=== PATIENT | female | born 1960 | race Caucasian/White ===

== ENCOUNTER 2018-02-10 13:38 | Outpatient (CLI) | payer BC | END 2018-02-10 13:39 | disposition home or self-care (01) | LOC: BICCT 13:38 | PROVIDERS: ATTEND Obstetrics & Gynecology | DX: R10.10 Upper abdominal pain, unspecified (principal); R31.9 Hematuria, unspecified; K76.89 Other specified diseases of liver | CPT/HCPCS: 74176 ==

== ENCOUNTER 2018-06-09 07:53 | Outpatient (CLI) | payer BC | END 2018-06-09 07:54 | disposition home or self-care (01) | LOC: BICMAMMO 07:53 | PROVIDERS: ATTEND Obstetrics & Gynecology | DX: Z12.31 Encounter for screening mammogram for malignant neoplasm of breast (principal); Z80.3 Family history of malignant neoplasm of breast | CPT/HCPCS: 77063; 77067 ==

== ENCOUNTER 2019-10-20 10:36 | Outpatient (CLI) | payer BC ==
--- NOTE | 2019-10-20 14:38 | MRI ---
MR the lumbar spine without contrast INDICATION: Low back pain with right-sided radiculopathy; right leg numbness and right leg pain COMPARISON: None. TECHNIQUE: Multiplanar multisequence MR images were obtained of lumbar spine without IV contrast. FINDINGS: Bone marrow: Bone marrow signal intensity appears within normal limits. Distal spinal cord and conus: Normal. The conus seen to terminate at L1. Visualized retroperitoneum and paraspinal soft tissues: No lymphadenopathy or free fluid is demonstra effie. Vertebral levels: L5-S1: There is a broad-based disc bulge with a superimposed right paracentral disc protrusion. There is moderate to severe narrowing of the right lateral recess with potential for impingement of the traversing right S1 nerve root. Broad-based bulge and facet hypertrophy at this level induces mild ne ural foraminal encroachment but without definite impingement.. L4-5: There is a broad-based bulge with facet hypertrophy and loss of disc space height is inducing m ild bilateral neural foraminal narrowing. L3-4: Broad-based disc bulge with mild facet joint degenerative change. There is mild neural foramina l encroachment. L2-3: Mild broad-based bulge with mild neural foraminal encroachment. L1-L2: Mild broad-based bulge but no appreciable central canal or neural foraminal narrowing T12-L1: No appreciable central canal or neuroforaminal narrowing. IMPRESSION: 1. Sjoc-ef-oigkyvfo spondylosis of the lumbar spine. 2. Right paracentral disc protrusion at L5-S1 causes moderate to severe narrowing of the right latera l recess with potential for impingement of the traversing right S1 nerve root. 3. Mild bilateral neural foraminal encroachment without definite impingement at L5-S1, L4-5, L3-4 and L2-3.
== END 2019-10-20 10:37 | disposition home or self-care (01) ==
LOC: SCSMRI 10:36
PROVIDERS: ATTEND Physical Medicine & Rehabilitation
DX: M47.26 Other spondylosis with radiculopathy, lumbar region (principal); M51.17 Intervertebral disc disorders with radiculopathy, lumbosacral region; M48.061 Spinal stenosis, lumbar region without neurogenic claudication
CPT/HCPCS: 72148

== ENCOUNTER 2020-01-03 06:27 | Day surgery (SDC) | payer BC ==
[2020-01-02 10:28] VITALS: BMI 26.0
--- NOTE | 2020-01-02 13:42 | HP ---
HISTORY OF PRESENT ILLNESS: Ms. Wiseman is a very pleasant woman here today via referral from Dr. Salguero for right lower extremity lumbar radiculopathy as well as some calf weakness. This had onset on September 24, 2019, when she woke up with severe right leg pain. She attempted early to treat this with Advil around the clock and was prescribed also some medications by her primary care physician, but unfortunately did not improve her symptoms much. She ultimately saw Dr. Salguero a week later, who prescribed steroids, which have helped a great deal. He examined and felt that she does have weakness in the right calf. She then also had MRI performed, which revealed excellent appearing lumbar spine as well as single area on the right side, a focal distribution at L5 and lateral recess, impinging upon the descending S1 nerve root, which does actually fit her symptoms very well. For this reason, she is referred to us. PHYSICAL EXAMINATION: She is alert and oriented x3. She does have mildly antalgic gait on examination. She is able to heel walk and toe walk and has positive straight leg raise on the right. There is mild sensory disturbance of the sole of the foot. Otherwise, she seems to be quite well appearing. PAST MEDICAL HISTORY: Significant for no major medical problem. She does not take any current medications other than the steroid she was prescribed. PAST SURGICAL HISTORY: None. CURRENT MEDICATIONS: Methylprednisolone. ALLERGIES: TO PENICILLIN, DURICEF, KEFLEX, CECLOR, AND SULFA DRUGS. ASSESSMENT: Lumbar radiculopathy. PLAN: Dr. Murdock met with the patient, reviewed imaging, and advocated for L5 diskectomy. He explained to the patient the risks, benefits, and alternatives to the procedure. The patient expressed understanding and elected to move forward with surgery as discussed. I do believe the patient is mentally competent and capable of making medical decisions for herself. We will move forward with surgery as planned. Job ID: [id number]
[2020-01-03] MEDS ORDERED: Bupivacaine PF 0.5% 30 ML VIAL ONE (06:33)
[2020-01-03] MEDS ORDERED: EPINEPHrine 1 MG/ML AMP ONE (06:34)
[2020-01-03] MEDS ORDERED: Thrombin 5000 UNITS/5 ML VIAL ONE (06:34)
[2020-01-03] MEDS ORDERED: Levofloxacin 500 mg/D5W 100 ml Premix Bag ONE (06:46)
[2020-01-03] MEDS ORDERED: Clindamycin/D5W 900 mg/50 ml Premix Bag ONE (06:46)
[2020-01-03] MEDS ORDERED: Fentanyl 250 MCG/5 ML VIAL ONE (07:21)
[2020-01-03 07:38] LABS: #Lymphocytes 0.9 thou/uL (1.20-3.40); #Monocytes 0.5 thou/uL (0.11-0.59); #Neutrophils 5.9 thou/uL (1.40-6.50); %Basophils 0.6 % (0.0-1.0); %Eosinophils 0.7 % (0.0-10.0); %Monocytes 7.2 % (0.0-10.0); %Neutrophils 79.5 % (42.0-75.0); Hemoglobin 14.2 g/dL (12.0-16.0); Mean Corpuscular HGB CONC 33.9 g/dL (32.0-36.0); Mean Corpuscular Volume 88.6 fL (78.0-98.0); Mean Platelet Volume 6.9 fL (7.4-10.4); Platelet Count 355 thou/uL (130-400); RBC Distribution Width 11.6 % (11.5-14.5); Red Blood Cell (RBC) Count 4.74 mill/uL (4.20-5.40); White Blood Cell (WBC) Count 7.4 thou/uL (4.8-10.8)
[2020-01-03 07:52] LABS: Anion Gap 14 mmol/L (10-20); BUN (Urea Nitrogen) 13 mg/dL (9.8-20.1); Calc. Creatinine Clearance 74 mL/min (70-130); Calcium 9.5 mg/dL (7.8-10.44); Carbon Dioxide 26 mmol/L (23-31); Chloride 105 mmol/L (98-107); Estimated GFR-MDRD 69; Glucose 128 mg/dL (80-115); Potassium 4.1 mmol/L (3.5-5.1); Sodium 141 mmol/L (136-145)
[2020-01-03] MEDS ORDERED: Midazolam HCl 2 mg/2 ml Vial ONE (07:56)
[2020-01-03] MEDS ORDERED: Racepinephrine 2.25% 0.5 ML NEB ONE (10:24)
[2020-01-03] MEDS ORDERED: Sodium Chloride For Inhalation 0.9% 3 ML NEB ONE (10:25)
[2020-01-03] MEDS ORDERED: Fentanyl 100 MCG/2 ML VIAL ONE (10:44)
--- NOTE | 2020-01-03 11:40 | OP ---
DATE OF PROCEDURE: 01/03/2020 POLITICAL GEOGRAPHER: Lee Gimenez PA-C INDICATION: Pain, weakness, and numbness. DIAGNOSIS: Right S1 radiculopathy. PROCEDURE PERFORMED: Right L5 decompression, diskectomy. ANESTHESIA: General. DESCRIPTION OF PROCEDURE: The patient was brought into the operating room and placed under general anesthesia. She was flipped from the supine to prone position on the operating room table. A linear incision was planned over the L5-S1 segment. After prepping and draping and after an appropriate preoperative pause, the incision was created. The soft tissues were swept right of midline. A self-retaining retractor was placed in the wound for optimal exposure. After confirming the appropriate level with C-arm fluoroscopy, Adson rongeurs, 2, 3, and 4 mm Kerrisons were used to perform hemilaminectomy along the inferior aspect of L5 and the superior aspect of S1. The laminectomy was extended laterally to decompress the lateral recesses. The descending S1 nerve root was identified. The exiting L5 nerve root was identified. Small disk protuberance was identified in the lateral recess was then removed. At the completion, the L5-S1 segment was decompressed well on the right. The wound was then irrigated. Hemostasis was maintained throughout. The wound was then closed in anatomic layers and a pressure dressing was applied. There were no known procedural complications. Job ID: [id number]
[2020-01-03] MEDS ORDERED: PROPOFOL 200 MG/20 ML VIAL ONE (12:01)
[2020-01-03] MEDS ORDERED: Glycopyrrolate 0.2 MG/ML 5 ML SYRINGE ONE (12:01)
[2020-01-03] MEDS ORDERED: Rocuronium Bromide 10 MG/ML (10ML VIAL) ONE (12:01)
[2020-01-03] MEDS ORDERED: Dexamethasone 20 MG/5 ML VIAL ONE (12:01)
[2020-01-03] MEDS ORDERED: Ondansetron PF 4 MG/2 ML Vial ONE (12:01)
[2020-01-03] MEDS ORDERED: Lidocaine 1% PF 5 ML VIAL ONE (12:01)
[2020-01-03] MEDS ORDERED: PHENYLEPHRINE-NS 100 MCG/ML 10 ML SYRINGE ONE (12:01)
[2020-01-03] MEDS ORDERED: Promethazine HCl 25 MG/ML VIAL ONE (14:39)
== END 2020-01-03 15:10 | disposition home or self-care (01) ==
LOC: SDC 06:27
PROVIDERS: ATTEND Neurological Surgery
PROC: 0ST20ZZ Resection of Lumbar Vertebral Disc, Open Approach (ICD-10-PCS; principal; 2020-01-03)
DX: M54.16 Radiculopathy, lumbar region (principal); Z88.0 Allergy status to penicillin; Z88.1 Allergy status to other antibiotic agents; Z88.2 Allergy status to sulfonamides
CPT/HCPCS: 36415; 76000; 80048; 85025; J0171; J1100; J1956; J2001; J2250; J2405; J2550; J2704; J3010; J3490; S0020

== ENCOUNTER 2021-12-22 15:29 | Emergency (ER) | payer BC ==
[2021-12-22 17:07] LABS: #Lymphocytes 1.1 thou/uL (1.20-3.40); #Monocytes 0.6 thou/uL (0.11-0.59); #Neutrophils 7.7 thou/uL (1.40-6.50); %Basophils 0.5 % (0.0-1.0); %Eosinophils 0.3 % (0.0-10.0); %Lymphocytes 11.6 % (21.0-51.0); %Monocytes 5.9 % (0.0-10.0); %Neutrophils 81.8 % (42.0-75.0); Hemoglobin 14.5 g/dL (12.0-16.0); Mean Corpuscular HGB CONC 33.7 g/dL (32.0-36.0); Mean Corpuscular Hemoglobin 29.5 pg (27.0-31.0); Mean Corpuscular Volume 87.8 fL (78.0-98.0); Mean Platelet Volume 6.9 fL (7.4-10.4); Platelet Count 334 thou/uL (130-400); White Blood Cell (WBC) Count 9.4 thou/uL (4.8-10.8)
[2021-12-22 17:45] LABS: ALT (SGPT) 19 U/L (8-55); AST (SGOT) 19 U/L (5-34); Albumin 4.7 g/dL (3.4-4.8); Alkaline Phosphatase 80 U/L (40-110); Anion Gap 15 mmol/L (10-20); BUN (Urea Nitrogen) 14 mg/dL (9.8-20.1); Bilirubin, Total 0.5 mg/dL (0.2-1.2); Calc. Creatinine Clearance 0 mL/min (70-130); Carbon Dioxide 26 mmol/L (23-31); Chloride 105 mmol/L (98-107); Globulin 3.1 g/dL (2.4-3.5); Glucose 117 mg/dL (80-115); Potassium 4.3 mmol/L (3.5-5.1); Protein, Total 7.8 g/dL (5.8-8.1); Sodium 142 mmol/L (136-145)
[2021-12-22] MEDS ORDERED: Lorazepam 2 MG/ML VIAL ONE (21:12)
== END 2021-12-22 21:20 | disposition home or self-care (01) ==
LOC: ERS 15:29
DX: R00.2 Palpitations (principal); I10 Essential (primary) hypertension
CPT/HCPCS: 36415; 71045; 80053; 84484; 85025; 93005; 96372; J2060

== ENCOUNTER 2021-12-24 23:36 | Emergency (ER) | payer BC ==
[2021-12-25 00:42] LABS: #Basophils 0.1 thou/uL (0.0-0.2); #Eosinphils 0.1 thou/uL (0.0-0.7); #Lymphocytes 1.2 thou/uL (1.20-3.40); #Monocytes 0.8 thou/uL (0.11-0.59); %Basophils 0.8 % (0.0-1.0); %Eosinophils 0.8 % (0.0-10.0); %Lymphocytes 14.3 % (21.0-51.0); %Monocytes 9.8 % (0.0-10.0); %Neutrophils 74.2 % (42.0-75.0); Hemoglobin 13.9 g/dL (12.0-16.0); Mean Corpuscular Volume 88.1 fL (78.0-98.0); Platelet Count 306 thou/uL (130-400); RBC Distribution Width 11.8 % (11.5-14.5); Red Blood Cell (RBC) Count 4.79 mill/uL (4.20-5.40)
[2021-12-25 01:04] LABS: ALT (SGPT) 19 U/L (8-55); AST (SGOT) 21 U/L (5-34); Albumin 4.5 g/dL (3.4-4.8); Alkaline Phosphatase 73 U/L (40-110); Anion Gap 11 mmol/L (10-20); BUN (Urea Nitrogen) 14 mg/dL (9.8-20.1); Bilirubin, Total 0.5 mg/dL (0.2-1.2); Calc. Creatinine Clearance 0 mL/min (70-130); Calcium 9.6 mg/dL (7.8-10.44); Carbon Dioxide 29 mmol/L (23-31); Chloride 105 mmol/L (98-107); Globulin 2.8 g/dL (2.4-3.5); Glucose 117 mg/dL (80-115); Potassium 4.1 mmol/L (3.5-5.1); Protein, Total 7.3 g/dL (5.8-8.1); Sodium 141 mmol/L (136-145)
== END 2021-12-25 01:33 | disposition home or self-care (01) ==
LOC: ERS 23:36
DX: R00.2 Palpitations (principal)
CPT/HCPCS: 36415; 80053; 84484; 85025; 93005